=== PATIENT | female | born 1995 | race Caucasian/White ===

== ENCOUNTER 2020-03-01 16:51 | Emergency (ER) | payer OTHER ==
[~2020-03-01] VITALS: Ht 160 cm; Wt 142.3 kg
[2020-03-01 16:55] VITALS: TEMP 98
[2020-03-01 17:06] LABS: COLLECTION METHOD CLEAN CATCH
[2020-03-01] MEDS ORDERED: ZOLOFT 100MG100 MG PO (17:17)
[2020-03-01 17:22] LABS: PH 7 (5-8); URINE APPEARANCE Hazy; URINE BACTERIA Rare /hpf; URINE BILIRUBIN Negative (NEGATIVE); URINE BLOOD 3+ (NEGATIVE); URINE COLOR Straw; URINE GLUCOSE Negative (NEGATIVE); URINE KETONE Negative (NEGATIVE); URINE LEUKOCYTE ESTERASE 1+ (NEGATIVE); URINE NITRATE Negative (NEGATIVE); URINE PROTEIN(semi-quant) Negative (NEGATIVE); URINE UROBILINOGEN Negative (NEGATIVE)
[2020-03-01 18:05] LABS: MEAN CELL VOLUME 90 fl (80.0-100.0); MEAN CORPUSCULAR HGB CONC 33 g/dl (33.0-37.0); PLATELET COUNT 251 K/mm3 (130-400); RED BLOOD COUNT 3.34 M/mm3 (4.10-5.30); REDCELL DISTRIBUTION WIDTH-CV 14.2 % (11.5-14.5)
[2020-03-01 18:10] LABS: HEMATOCRIT 29.9 % (37.0-47.0); HEMOGLOBIN 9.9 g/dl (12.5-16.0); MEAN CORPUSCULAR HEMOGLOBIN 30 pg (27.0-31.0)
[2020-03-01 18:17] LABS: ALBUMIN 3.4 gm/dL (3.5-5.0); BILIRUBIN,TOTAL 0.4 mg/dL (0.0-1.0); CREATININE, serum 0.65 (0.52-1.25); POTASSIUM 4.2 mmol/L (3.4-5.0); TOTAL PROTEIN 6.5 gm/dL (6.4-8.2); URIC ACID 6.3 mg/dL (2.5-6.2)
[2020-03-01 18:41] LABS: INR 0.9 (0.8-3.0); PROTHROMBIN TIME 10.1 SECONDS (9.7-12.8)
[2020-03-01 18:43] LABS: PARTIAL THROMBOPLASTIN TIME 28.4 SECONDS (26.0-37.0)
[2020-03-01 18:52] LABS: BAND 1 % (0-10); EOSINOPHIL 3 % (0-4); LYMPHOCYTE 23 % (20.0-51.0); METAMYELOCYTE 2 % (0-0); NEUTROPHILS 68 % (42.0-75.2)
[2020-03-01 18:53] LABS: PLATELET ESTIMATE NORMAL (NORMAL)
[2020-03-01 19:05] VITALS: PULSE 95
[2020-03-01] MEDS ORDERED: PROCARDIA XL 3030 MG PO (19:52)
[2020-03-01 20:27] VITALS: BP 149/95
[2020-03-02 07:47] LABS: PATHOLOGY DIFF REVIEW OK
== END 2020-03-01 20:31 | disposition home or self-care (01) ==
LOC: COL.ER 16:51
PROVIDERS: Emergency Medicine
DX: O14.95 Unspecified pre-eclampsia, complicating the puerperium (principal); R51.9 Headache, unspecified; R60.0 Localized edema; F32.9 Major depressive disorder, single episode, unspecified; F41.9 Anxiety disorder, unspecified; Z88.0 Allergy status to penicillin
CPT/HCPCS: J7030